=== PATIENT | female | born 2000 | race Caucasian/White ===

== ENCOUNTER 2018-12-07 02:56 | Emergency (ER) | payer MEDICAID ==
[~2018-12-07] VITALS: Ht 162.6 cm; Wt 54.9 kg
[2018-12-07 03:02] VITALS: Ht 162.6 cm; Wt 54.9 kg
[2018-12-07] MEDS ORDERED: SOD CHLORIDE 0.9% 1,000 ML IV STA (07:58)
[2018-12-07] MEDS ORDERED: METHYLPREDNISOLONE 125 MG INJ IV STA (07:58)
[2018-12-07] MEDS ORDERED: LEVALBUTEROL (NEB) 1.25 MG/0.5 ML AMP INH STA ×2 (07:58→10:44)
[2018-12-07] MEDS ORDERED: PRED20TA PO (13:18)
[2018-12-07] MEDS ORDERED: ALBU18HF INHALATION (13:18)
[2018-12-07] MEDS ORDERED: BENZ-6 PO ×2 (13:18→13:22)
[2018-12-07] MEDS ORDERED: D-ME473S2 PO (13:20)
[2018-12-07] MEDS ORDERED: CETI10CA PO (13:21)
[2018-12-07 13:35] VITALS: BP 108/68; PULSE 106; RESP 18
--- NOTE | 2018-12-07 16:43 | ERD ---
ER Documentation Chief Complaint Chief Complaint CHEST AND NASAL CONGESTION, SOB X 1 DAY HPI 18-year-old female patient with no significant past medical history presents to ED complaining of chest congestion, nasal congestion, shortness of breath that started yesterday. Patient also reports a she has a cough that started this morning. Reports that she also took control, 2 weeks ago. States that she does not have a history of asthma. Denies any fever, chills, nausea, vomiting, diarrhea, neck stiffness. ROS All systems reviewed and are negative except as per history of present illness. Medications Home Meds Active Scripts Benzonatate* (Tessalon Perle*) 100 Mg Capsule, 100 MG PO Q8H PRN for COUGH, #20 CAP Prov:SANDY JOSEPH PA-C 12/07/18 Cetirizine Hcl* (Zyrtec*) 10 Mg Capsule, 10 MG PO DAILY, #10 TAB.CHEW Prov:SANDY JOSEPH PA-C 12/07/18 Prednisone* (Prednisone*) 20 Mg Tab, 40 MG PO DAILY for 4 Days, TAB Prov:SANDY JOSEPH PA-C 12/07/18 Albuterol Sulfate* (Ventolin HFA*) 18 Gm Hfa.aer.ad, 2 PUFF INHALATION Q4H, #1 INHALER Prov:SANDY JOSEPH PA-C 12/07/18 Allergies Allergies: Coded Allergies: No Known Allergy (Unverified , 12/07/18) PMhx/Soc Medical and Surgical Hx: pt denies Medical Hx, pt denies Surgical Hx Hx Alcohol Use: Yes Hx Substance Use: Yes (MARIJUANA) Hx Tobacco Use: No Smoking Status: Current some day smoker FmHx Family History: No diabetes, No coronary disease Physical Exam Vitals Vital Signs Date Temp Pulse Resp B/P (MAP) Pulse Ox O2 O2 Flow FiO2 Time Delivery Rate 12/07/18 98.9 106 18 108/68 97 Room Air 13:35 (81) 12/07/18 98.6 132 18 98/52 (67) 92 Room Air 12:52 12/07/18 99 19 94 21 11:02 12/07/18 98.9 124 18 101/57 94 Room Air 10:45 (72) 12/07/18 140 115/56 98 Room Air 09:22 (75) 12/07/18 110 19 93 21 08:18 12/07/18 99.7 141 18 129/78 93 03:02 (95) Physical Exam Const: Pdr-mit-ceojfozqf, well-nourished. In no acute distress. Head: Atraumatic, normocephalic Eyes: Normal Conjunctiva without injection. No purulent discharge. PERRL. EOMI ENT: Normal external ear. Ear canal without erythema. Tympanic membrane pearly without effusion or bulging. Nasal canal clear with normal turbinates. Moist oropharynx without tonsillar exudates. Non-erythematous pharynx. Uvula midline. No drooling. No trismus. Neck: Full range of motion. No meningismus. No cervical lymphadenopathy. Resp: Clear to auscultation bilaterally. No wheezing, rhonchi, rales, or crackles. No accessory muscle use. No retractions. Cardio: Regular rate and rhythm. No murmurs, rubs or gallops. Abd: Soft, non tender, non distended. Normal bowel sounds. No palpable masses. No rebound tenderness. No guarding. Skin: No petechiae or rashes Back: No midline tenderness. No CVA tenderness. Ext: No cyanosis, or edema. Neur: Awake and alert. Psych: Normal Mood and Affect Results 24 hrs Laboratory Tests Test 12/07/18 08:16 12/07/18 10:50 POC Beta HCG, Qualitative NEGATIVE White Blood Count 12.0 10^3/ul Red Blood Count 4.12 10^6/ul Hemoglobin 12.8 g/dl Hematocrit 38.3 % Mean Corpuscular Volume 93.0 fl Mean Corpuscular Hemoglobin 31.1 pg Mean Corpuscular Hemoglobin Concent 33.4 g/dl Red Cell Distribution Width 12.6 % Platelet Count 289 10^3/UL Mean Platelet Volume 9.8 fl Immature Granulocytes % 0.300 % Neutrophils % 93.0 % Lymphocytes % 3.9 % Monocytes % 2.2 % Eosinophils % 0.3 % Basophils % 0.3 % Nucleated Red Blood Cells % 0.0 /100WBC Immature Granulocytes # 0.040 10^3/ul Neutrophils # 11.2 10^3/ul Lymphocytes # 0.5 10^3/ul Monocytes # 0.3 10^3/ul Eosinophils # 0.0 10^3/ul Basophils # 0.0 10^3/ul Nucleated Red Blood Cells # 0.0 10^3/ul D-Dimer 549.86 ng/ml D-Dimer Comment Sodium Level 141 mmol/L Potassium Level 3.7 mmol/L Chloride Level 105 mmol/L Carbon Dioxide Level 23 mmol/L Anion Gap 13 Blood Urea Nitrogen 7 mg/dl Creatinine 0.62 mg/dl Est Glomerular Filtrat Rate mL/min > 60 mL/min Glucose Level 123 mg/dl Calcium Level 8.7 mg/dl Current Medications Medications Dose Sig/Suzette Start Time Status Last (Trade) Ordered Route PRN Stop Time Admin Dose Reason Admin Sodium 1,000 ml @ Q1H STAT 12/07/18 DC 12/07/18 Chloride 1,000 mls/hr IV 07:58 12/07/18 08:39 08:57 5 mg ONCE STAT 12/07/18 DC 12/07/18 Levalbuterol INH 07:58 12/07/18 08:16 (Xopenex 08:01 Neb) 125 mg ONCE STAT 12/07/18 DC 12/07/18 Methylprednis IV 07:58 12/07/18 08:39 olone Sodium 08:01 Succinate (Solu-Medrol) 5 mg ONCE STAT 12/07/18 DC 12/07/18 Levalbuterol INH 10:44 12/07/18 11:00 (Xopenex 10:45 Neb) Procedures/MDM 18-year-old female patient with no significant past medical history presents to ED complaining of chest, nasal congestion, cough that started this morning. Patient also reports that she took control, 2 weeks ago. D-dimer, CBC, BMP was ordered to further evaluate patient. Patient discussed with my supervising physician, Dr. Gooden who and discharge plan. Patient was given 2 breathing treatments consisting of 5 mg continuous Xopenex with improvement of her symptoms. Patient was also given 1 L normal saline, 125 mg IV Solu-Medrol. IMPRESSION: No acute disease. Symptoms are likely secondary to viral etiology. Patient however instructed that if she still has shortness of breath, she should return to the ED for further evaluation and treatment. Chest x-ray shows no evidence of pneumonia, pneumothorax, pleural effusion. D-dimer not significantly elevated. Low suspicion for acute myocardial infarction, pneumothorax, pericarditis, myocardi tis, endocarditis, pneumonia, cardiac tamponade, pulmonary embolism, pleural effusion, AAA, aortic dissection, Boerhaave's syndrome, cardiac dysrhythmias,meningitis, intracranial bleed, seizure, stroke, TIA or other emergent conditions. Diagnosis: Shortness of breath, Wheezing Discharge medications: Tessalon Perles, Zyrtec, Prednisone, Ventolin Follow up with primary care physician in 1-2 days. Instructed patient to return to the ED sooner for any worsening symptoms. Patient's questions were answered. Patient is hemodynamically stable. Patient understood and agreed with discharge plan. Patient discharged stable. Disclaimer: Inadvertent spelling and grammatical errors are likely due to EHR/dictation software use and do not reflect on the overall quality of patient care. Also, please note that the electronic time recorded on this note does not necessarily reflect the actual time of the patient encounter. Departure Diagnosis: Primary Impression: Shortness of breath Additional Impression: Wheezing Condition: Stable Patient Instructions: Uri, Viral W/ Wheezing (Adult) Referrals: [facility] YOU HAVE RECEIVED A MEDICAL SCREENING EXAM AND THE RESULTS INDICATE THAT YOU DO NOT HAVE A CONDITION THAT REQUIRES URGENT TREATMENT IN THE EMERGENCY DEPARTMENT. FURTHER EVALUATION AND TREATMENT OF YOUR CONDITION CAN WAIT UNTIL YOU ARE SEEN IN YOUR DOCTORS OFFICE WITHIN THE NEXT 1-2 DAYS. IT IS YOUR RESPONSIBILITY TO MAKE AN APPOINTMENT FOR FOLOW-UP CARE. IF YOU HAVE A PRIMARY DOCTOR --you should call your primary doctor and schedule an appointment IF YOU DO NOT HAVE A PRIMARY DOCTOR YOU CAN CALL OUR PHYSICIAN REFERRAL HOTLINE AT IF YOU CAN NOT AFFORD TO SEE A PHYSICIAN YOU CAN CHOSE FROM THE FOLLOWING [facility] [address] [facility]. [facility] [address] [facility] [facility] [address] [facility] [facility] [address] [facility]. [facility] [address] [facility]. [facility]. [address] [facility]. [facility] YOU HAVE RECEIVED A MEDICAL SCREENING EXAM AND THE RESULTS INDICATE THAT YOU DO NOT HAVE A CONDITION THAT REQUIRES URGENT TREATMENT IN THE EMERGENCY DEPARTMENT. FURTHER EVALUATION AND TREATMENT OF YOUR CONDITION CAN WAIT UNTIL YOU ARE SEEN IN YOUR DOCTORS OFFICE WITHIN THE NEXT 1-2 DAYS. IT IS YOUR RESPONSIBILITY TO MAKE AN APPOINTMENT FOR FOLOW-UP CARE. IF YOU HAVE A PRIMARY DOCTOR --you should call your primary doctor and schedule and appointment IF YOU DO NOT HAVE A PRIMARY DOCTOR YOU CAN CALL OUR PHYSICIAN REFERRAL HOTLINE AT . IF YOU CAN NOT AFFORD TO SEE A PHYSICIAN YOU CAN CHOSE FROM THE FOLLOWING [facility] INSTITUTIONS: [facility] [id number] [place] [address] [facility] [address] [place] [address] [facility] [address] [place] [address] [facility] URGENT CARE/SPECIALTIES Additional Instructions: Call your primary care doctor TOMORROW for an appointment during the next 2-3 days to get tested for asthma.See the doctor sooner or return here if your condition worsens before your appointment time - shortness of breath, chest pain, vomiting, fever, etc. SANDY JOSEPH PA-C Dec 07, 2018 16:43
== END 2018-12-07 13:36 | disposition home or self-care (01) ==
LOC: FTE 02:56
DX: R06.02 Shortness of breath (principal); F17.210 Nicotine dependence, cigarettes, uncomplicated; R06.2 Wheezing
CPT/HCPCS: 71045; 80048; 81025; 85025; 85378; 87400; 94644; 94645; 96361; 96374; J2930; J7030; Z7502; Z7610